=== PATIENT | female | born 1935 | race Caucasian/White ===

== ENCOUNTER 2017-11-16 20:26 | Observation (INO) | payer MEDICARE, OTHER, SELFPAY ==
[~2017-11-16] VITALS: Ht 157.5 cm; Wt 58.1 kg
[~2017-11-16 20:26] MED LIST: ALBU90OI6 INH; ALEN70 PO; ASPI325 PO; ATOR80 PO; Acidophilus La100 GM PO; BIOTIN1 MG PO; BUDE6HFA INH; CARV3.125 PO; CELE100 PO; CLOP75 PO; CYAN100 PO; DICL75ER PO; DOCU100 PO; DONE5 PO; DULO30 PO; ERGO400 PO; FISH1000 PO; HYDCHL25 PO; HYDR1TAB94 PO; LEVO750 PO; LISI20 PO; LISI5 PO; NAPR500 PO; NITR100CA PO; OMEP20ER PO; OMEP40CA12 PO; OMEPRAZOLE MAGN20 MG PO; OSEL75CA PO; ROSU10TA PO; SPIR25 PO; TORSE20 PO; TRAM50 PO; ZESTORETIC 20-121 EA PO; Zithromax500 MG PO
[2017-11-16 20:48] LABS: BASOPHILS ABSOLUTE AUTO 0.03 K/mm3 (0.00-0.23); BASOPHILS PERCENT AUTO 1 % (0-2); EOSINOPHILS ABSOLUTE AUTO 0.21 K/mm3 (0.00-0.68); EOSINOPHILS PERCENT AUTO 5 % (0-6); Hematocrit 34.1 % (33.0-51.0); Hemoglobin 11.2 g/dL (11.5-16.0); IMMATURE GRAN ABSOLUTE AUTO 0.01 K/mm3 (0.00-0.10); IMMATURE GRAN PERCENT AUTO 0 % (0-1); LYMPHOCYTES ABSOLUTE AUTO 1.46 K/mm3 (0.84-5.20); LYMPHOCYTES PERCENT AUTO 31 % (21-46); MONOCYTES ABSOLUTE AUTO 0.46 K/mm3 (0.16-1.47); MONOCYTES PERCENT AUTO 10 % (4-13); Mean Corpuscular HGB 30.2 pg (26.0-34.0); Mean Corpuscular HGB Conc 32.8 g/dL (31.5-36.5); Mean Corpuscular Volume 92 fL (80-100); NEUTROPHILS ABSOLUTE AUTO 2.53 K/mm3 (1.96-9.15); NEUTROPHILS PERCENT AUTO 54 % (41-73); Platelet Count 207 K/mm3 (150-400); RDW Standard Deviation 40.5 fL (35.1-46.3); Red Blood Cell Count 3.71 M/mm3 (3.80-5.20)
[2017-11-16 21:09] LABS: Albumin, Blood 3.1 g/dL (3.4-5.0); Albumin/Globulin Ratio 0.8 (0.8-1.8); Bilirubin, Total 0.4 mg/dL (0.1-1.0); Bun/Creatinine Ratio 36.3 (12.0-20.0); Calcium, Blood 9.6 mg/dL (8.5-10.1); Creatinine, Blood 1.13 mg/dL (0.40-1.00); Globulin, Blood 3.9 g/dL (2.2-4.0); Potassium, Blood 3.4 mmol/L (3.5-5.5)
[2017-11-18 05:09] LABS: BASOPHILS ABSOLUTE AUTO 0.04 K/mm3 (0.00-0.23); BASOPHILS PERCENT AUTO 1 % (0-2); EOSINOPHILS ABSOLUTE AUTO 0.13 K/mm3 (0.00-0.68); EOSINOPHILS PERCENT AUTO 3 % (0-6); Hematocrit 32.3 % (33.0-51.0); Hemoglobin 10.5 g/dL (11.5-16.0); IMMATURE GRAN ABSOLUTE AUTO 0.01 K/mm3 (0.00-0.10); IMMATURE GRAN PERCENT AUTO 0 % (0-1); LYMPHOCYTES ABSOLUTE AUTO 1.37 K/mm3 (0.84-5.20); LYMPHOCYTES PERCENT AUTO 27 % (21-46); MONOCYTES ABSOLUTE AUTO 0.43 K/mm3 (0.16-1.47); MONOCYTES PERCENT AUTO 9 % (4-13); Mean Corpuscular HGB 30.1 pg (26.0-34.0); Mean Corpuscular HGB Conc 32.5 g/dL (31.5-36.5); Mean Corpuscular Volume 93 fL (80-100); Mean Platelet Volume 9.6 fL (9.1-12.4); NEUTROPHILS ABSOLUTE AUTO 3.08 K/mm3 (1.96-9.15); NEUTROPHILS PERCENT AUTO 61 % (41-73); Platelet Count 190 K/mm3 (150-400); RDW Standard Deviation 40.3 fL (35.1-46.3); Red Blood Cell Count 3.49 M/mm3 (3.80-5.20); White Blood Cell Count 5.06 K/mm3 (4.00-11.30)
[2017-11-18 06:08] LABS: Bun/Creatinine Ratio 27.2 (12.0-20.0); Creatinine, Blood 0.96 mg/dL (0.40-1.00); Potassium, Blood 3.7 mmol/L (3.5-5.5)
[2017-11-18 16:28] LABS: Source, Urine Clean Catch
[2017-11-18 16:39] LABS: Appearance, Urine Clear (Clear); Bilirubin, Urine Neg (Neg); Blood, Urine Neg (Neg); Color, Urine Yellow (P-Yellow); Glucose Qualitative, Urine Neg (Neg); Ketones, Urine 2+ (Neg); Leukocyte Esterase, Urine Neg (Neg); Nitrite, Urine Neg (Neg); Protein, Urine Neg (Neg); Urobilinogen, Urine 1+ (Normal)
== END 2017-11-25 16:20 | disposition home or self-care (01) ==
LOC: ER 20:26 → MEDS 20:27 → ENPENDDIS 11-24 10:31 → EDPENDDIS 11-24 10:31 → MEDS 11-25 16:20
PROVIDERS: Internal Medicine; Physician Assistant
DX: S02.2XXA Fracture of nasal bones, initial encounter for closed fracture (principal); S05.11XA Contusion of eyeball and orbital tissues, right eye, initial encounter; I13.0 Hypertensive heart and chronic kidney disease with heart failure and stage 1 through stage 4 chronic kidney disease, or unspecified chronic kidney disease; E11.22 Type 2 diabetes mellitus with diabetic chronic kidney disease; N18.3 Chronic kidney disease, stage 3 (moderate); E87.6 Hypokalemia; I50.22 Chronic systolic (congestive) heart failure; J44.9 Chronic obstructive pulmonary disease, unspecified; I25.10 Atherosclerotic heart disease of native coronary artery without angina pectoris; F03.90 Unspecified dementia, unspecified severity, without behavioral disturbance, psychotic disturbance, mood disturbance, and anxiety; Z85.3 Personal history of malignant neoplasm of breast; Z95.5 Presence of coronary angioplasty implant and graft; Z88.5 Allergy status to narcotic agent; Z88.0 Allergy status to penicillin; Z88.8 Allergy status to other drugs, medicaments and biological substances; Z79.82 Long term (current) use of aspirin; Z79.899 Other long term (current) drug therapy; Z90.12 Acquired absence of left breast and nipple; Z96.641 Presence of right artificial hip joint; Z98.890 Other specified postprocedural states; Z87.891 Personal history of nicotine dependence; W01.190A Fall on same level from slipping, tripping and stumbling with subsequent striking against furniture, initial encounter
CPT/HCPCS: 36415; 70450; 72125; 73502; 80048; 80053; 81003; 82947; 83735; 85025; 87493; 93005; 93010; 96361; 96365; 96366; 97110; 97116; 97161; 97166; 97530; 99285; G0378; G8978; G8979; G8987; G8988; G8989; J7040; J7120

== ENCOUNTER 2017-12-12 08:54 | Emergency (ER) | payer MEDICARE, OTHER, SELFPAY ==
[~2017-12-12] VITALS: Ht 165.1 cm; Wt 52.2 kg
[2017-12-12 09:28] LABS: BASOPHILS ABSOLUTE AUTO 0.03 K/mm3 (0.00-0.23); BASOPHILS PERCENT AUTO 0 % (0-2); EOSINOPHILS ABSOLUTE AUTO 0.05 K/mm3 (0.00-0.68); EOSINOPHILS PERCENT AUTO 1 % (0-6); Hematocrit 37.5 % (33.0-51.0); IMMATURE GRAN ABSOLUTE AUTO 0.02 K/mm3 (0.00-0.10); IMMATURE GRAN PERCENT AUTO 0 % (0-1); LYMPHOCYTES ABSOLUTE AUTO 1.27 K/mm3 (0.84-5.20); LYMPHOCYTES PERCENT AUTO 16 % (21-46); MONOCYTES ABSOLUTE AUTO 0.37 K/mm3 (0.16-1.47); MONOCYTES PERCENT AUTO 5 % (4-13); Mean Corpuscular HGB 29.5 pg (26.0-34.0); Mean Corpuscular Volume 92 fL (80-100); Mean Platelet Volume 8.8 fL (9.1-12.4); NEUTROPHILS ABSOLUTE AUTO 6.46 K/mm3 (1.96-9.15); NEUTROPHILS PERCENT AUTO 79 % (41-73); Platelet Count 252 K/mm3 (150-400); RDW Coefficient Variation 12.6 % (11.7-14.2); RDW Standard Deviation 42.5 fL (35.1-46.3); Red Blood Cell Count 4.07 M/mm3 (3.80-5.20)
[2017-12-12 09:41] LABS: Alanine Aminotransfer (ALT/SGP 19 U/L (12-78); Albumin, Blood 3.7 g/dL (3.4-5.0); Albumin/Globulin Ratio 0.9 (0.8-1.8); Alk Phos 120 U/L (50-136); Anion Gap 7 mmol/L (6-16); Aspartate Aminotrans (AST/SGOT 24 U/L (12-37); Bilirubin, Total 0.6 mg/dL (0.1-1.0); Blood Urea Nitrogen 20 mg/dL (8-24); Bun/Creatinine Ratio 23.2 (12.0-20.0); CO2, Blood 33 mmol/L (21-32); Calcium, Blood 9.2 mg/dL (8.5-10.1); Chloride, Blood 97 mmol/L (98-108); Creatinine, Blood 0.86 mg/dL (0.40-1.00); Globulin, Blood 3.9 g/dL (2.2-4.0); Glomerular Filtration Rate >60 (60-); Glucose, Blood 148 mg/dL (70-99); Sodium, Blood 137 mmol/L (136-145); Total Protein, Blood 7.6 g/dL (6.4-8.2); Troponin I <0.015 ng/mL (0.000-0.040)
[2017-12-12] MEDS ORDERED: ACET325 PO (09:49)
[2017-12-12] MEDS ORDERED: Milk Of Ma400 MG/5 M PO (09:50)
[2017-12-12] MEDS ORDERED: LOPE2C PO (09:50)
[2017-12-12] MEDS ORDERED: BISA10S PR (09:50)
[2017-12-12] MEDS ORDERED: ALUM320SU PO (09:50)
[2017-12-12] MEDS ORDERED: Hair, Skin & N1 EACH PO (09:51)
== END 2017-12-12 13:44 | disposition home or self-care (01) ==
LOC: ER 08:54
PROVIDERS: Emergency Medicine
DX: R07.9 Chest pain, unspecified (principal); K44.9 Diaphragmatic hernia without obstruction or gangrene; I10 Essential (primary) hypertension; E11.9 Type 2 diabetes mellitus without complications; Z88.0 Allergy status to penicillin; Z88.5 Allergy status to narcotic agent; Z88.8 Allergy status to other drugs, medicaments and biological substances; Z79.899 Other long term (current) drug therapy; Z79.82 Long term (current) use of aspirin; Z85.3 Personal history of malignant neoplasm of breast; Z90.12 Acquired absence of left breast and nipple; Z87.891 Personal history of nicotine dependence
CPT/HCPCS: 36415; 71046; 80053; 83880; 84484; 85025; 93005; 93010; 99283

== ENCOUNTER → 2018-04-18 | Outpatient (CLI) | payer MEDICARE, OTHER ==
[~2018-04-18] MED LIST changes: +ACET325 PO; +ALUM320SU PO; +BISA10S PR; +Hair, Skin & N1 EACH PO; +LOPE2C PO; +Milk Of Ma400 MG/5 M PO
[2018-04-18 16:25] LABS: Source, Urine Clean Catch
[2018-04-18 16:28] LABS: Bilirubin, Urine Neg (Neg); Blood, Urine Neg (Neg); Glucose Qualitative, Urine Neg (Neg); Ketones, Urine Neg (Neg); Leukocyte Esterase, Urine 1+ (Neg); Nitrite, Urine Neg (Neg); Protein, Urine Neg (Neg); Urobilinogen, Urine NORM (Normal)
[2018-04-18 16:33] LABS: Appearance, Urine Clear (Clear); Color, Urine Yellow (P-Yellow)
[2018-04-18 16:34] LABS: Bacteria Few /hpf; Red Blood Cells, Urine 0-2 /hpf (0-2); Squamous Epithelial Cells Rare /hpf (Few); White Blood Cells, Urine 0-2 /hpf (0-5)
== END | disposition home or self-care (01) ==
LOC: LAB 16:21 → LAB SHORT 16:21
PROVIDERS: Family Medicine
DX: N39.0 Urinary tract infection, site not specified (principal)
CPT/HCPCS: 81001; 87086

== ENCOUNTER → 2018-05-18 | Outpatient (CLI) | payer MEDICARE, OTHER ==
[2018-05-19 08:21] LABS: Source, Urine Clean Catch
[2018-05-19 08:33] LABS: Bilirubin, Urine Neg (Neg); Blood, Urine 2+ (Neg); Glucose Qualitative, Urine Neg (Neg); Ketones, Urine Neg (Neg); Leukocyte Esterase, Urine 1+ (Neg); Nitrite, Urine Neg (Neg); Protein, Urine Neg (Neg); Specific Gravity, Urine 1.015 (1.003-1.022); Urobilinogen, Urine NORM (Normal)
[2018-05-19 09:13] LABS: Appearance, Urine Cloudy (Clear); Color, Urine Yellow (P-Yellow)
[2018-05-19 09:14] LABS: Amorphous Light (0-Heavy); Bacteria Few /hpf; Red Blood Cells, Urine 0-2 /hpf (0-2); Squamous Epithelial Cells Few /hpf (Few)
== END | disposition home or self-care (01) ==
LOC: LAB SHORT 08:19 → LAB 08:19
PROVIDERS: Family Medicine
DX: N39.0 Urinary tract infection, site not specified (principal)
CPT/HCPCS: 81001; 87086

== ENCOUNTER 2018-08-24 07:56 | Inpatient (IN) | payer MEDICARE, OTHER ==
[~2018-08-24] VITALS: Ht 172.7 cm; Wt 61.9 kg
[2018-08-24 08:28] LABS: BASOPHILS ABSOLUTE AUTO 0.05 K/mm3 (0.00-0.23); BASOPHILS PERCENT AUTO 1 % (0-2); EOSINOPHILS ABSOLUTE AUTO 0.12 K/mm3 (0.00-0.68); EOSINOPHILS PERCENT AUTO 2 % (0-6); Hemoglobin 12.6 g/dL (11.5-16.0); IMMATURE GRAN ABSOLUTE AUTO 0.11 K/mm3 (0.00-0.10); IMMATURE GRAN PERCENT AUTO 2 % (0-1); LYMPHOCYTES ABSOLUTE AUTO 1.24 K/mm3 (0.84-5.20); LYMPHOCYTES PERCENT AUTO 21 % (21-46); MONOCYTES ABSOLUTE AUTO 0.43 K/mm3 (0.16-1.47); MONOCYTES PERCENT AUTO 7 % (4-13); Mean Corpuscular HGB 28.6 pg (26.0-34.0); Mean Corpuscular HGB Conc 32.3 g/dL (31.5-36.5); Mean Corpuscular Volume 89 fL (80-100); Mean Platelet Volume 8.6 fL (9.1-12.4); NEUTROPHILS ABSOLUTE AUTO 3.95 K/mm3 (1.96-9.15); NEUTROPHILS PERCENT AUTO 67 % (41-73); Platelet Count 206 K/mm3 (150-400); RDW Standard Deviation 42.2 fL (35.1-46.3)
[2018-08-24 08:43] LABS: International Normalized Ratio 1.01; Prothrombin Time Results 10.4 Sec (9.7-11.5)
[2018-08-24 08:50] LABS: Alanine Aminotransfer (ALT/SGP 20 U/L (12-78); Albumin, Blood 3.1 g/dL (3.4-5.0); Albumin/Globulin Ratio 0.8 (0.8-1.8); Alk Phos 111 U/L (50-136); Anion Gap 7 mmol/L (6-16); Aspartate Aminotrans (AST/SGOT 19 U/L (12-37); Bilirubin, Total 0.8 mg/dL (0.1-1.0); Blood Urea Nitrogen 21 mg/dL (8-24); Bun/Creatinine Ratio 25.5 (12.0-20.0); CO2, Blood 30 mmol/L (21-32); Calcium, Blood 8.9 mg/dL (8.5-10.1); Chloride, Blood 107 mmol/L (98-108); Creatinine, Blood 0.82 mg/dL (0.40-1.00); Globulin, Blood 3.7 g/dL (2.2-4.0); Glomerular Filtration Rate >60 (60-); Glucose, Blood 117 mg/dL (70-99); Potassium, Blood 3.7 mmol/L (3.5-5.5); Sodium, Blood 144 mmol/L (136-145); Total Protein, Blood 6.8 g/dL (6.4-8.2)
[2018-08-24 09:26] LABS: Source, Urine Catheter
[2018-08-24 09:28] LABS: Bilirubin, Urine Neg (Neg); Blood, Urine Neg (Neg); Glucose Qualitative, Urine Neg (Neg); Ketones, Urine Neg (Neg); Leukocyte Esterase, Urine Neg (Neg); Nitrite, Urine Neg (Neg); Protein, Urine 1+ (Neg); Specific Gravity, Urine 1.015 (1.003-1.022); Urobilinogen, Urine NORM (Normal)
[2018-08-24 09:39] LABS: Appearance, Urine Clear (Clear); Color, Urine Yellow (P-Yellow)
[2018-08-24] MEDS ORDERED: ASPI81CH PO (13:14)
[2018-08-24] MEDS ORDERED: VITAMIN D-32000 UNIT PO (13:26)
[2018-08-24 17:17] LABS: Hematocrit 37.4 % (33.0-51.0); Hemoglobin 11.9 g/dL (11.5-16.0)
[2018-08-24 18:02] LABS: CPK Creatine Kinase 86 U/L (26-193); Troponin I <0.015 ng/mL (0.000-0.040)
[2018-08-24 19:54] LABS: Hematocrit 33.2 % (33.0-51.0); Hemoglobin 10.6 g/dL (11.5-16.0)
[2018-08-25 06:04] LABS: BASOPHILS ABSOLUTE AUTO 0.02 K/mm3 (0.00-0.23); BASOPHILS PERCENT AUTO 0 % (0-2); EOSINOPHILS PERCENT AUTO 0 % (0-6); Hematocrit 33.9 % (33.0-51.0); Hemoglobin 10.5 g/dL (11.5-16.0); IMMATURE GRAN PERCENT AUTO 1 % (0-1); LYMPHOCYTES ABSOLUTE AUTO 0.93 K/mm3 (0.84-5.20); LYMPHOCYTES PERCENT AUTO 5 % (21-46); MONOCYTES ABSOLUTE AUTO 1.24 K/mm3 (0.16-1.47); MONOCYTES PERCENT AUTO 6 % (4-13); Mean Corpuscular HGB 28.8 pg (26.0-34.0); Mean Platelet Volume 8.9 fL (9.1-12.4); NEUTROPHILS ABSOLUTE AUTO 17.15 K/mm3 (1.96-9.15); NEUTROPHILS PERCENT AUTO 88 % (41-73); Platelet Count 202 K/mm3 (150-400); RDW Coefficient Variation 13.2 % (11.7-14.2); RDW Standard Deviation 44.8 fL (35.1-46.3); Red Blood Cell Count 3.65 M/mm3 (3.80-5.20); White Blood Cell Count 19.44 K/mm3 (4.00-11.30)
[2018-08-25 06:05] LABS: Mean Corpuscular Volume 93 fL (80-100)
[2018-08-25 14:39] LABS: Hematocrit 28.2 % (33.0-51.0); Hemoglobin 8.8 g/dL (11.5-16.0)
[2018-08-25 15:38] LABS: Albumin, Blood 2.9 g/dL (3.4-5.0); Albumin/Globulin Ratio 0.8 (0.8-1.8); Bilirubin, Direct 0.2 mg/dL (0.0-0.3); Bilirubin, Indirect 0.4 mg/dL (0.1-0.7); Bilirubin, Total 0.6 mg/dL (0.1-1.0); Globulin, Blood 3.5 g/dL (2.2-4.0); Total Protein, Blood 6.4 g/dL (6.4-8.2); Troponin I 0.024 ng/mL (0.000-0.040)
[2018-08-25 18:19] LABS: Hematocrit 25.9 % (33.0-51.0); Hemoglobin 8.1 g/dL (11.5-16.0)
[2018-08-25 21:17] LABS: Source, Urine Clean Catch
[2018-08-25 21:21] LABS: Blood, Urine 4+ (Neg); Glucose Qualitative, Urine Neg (Neg); Ketones, Urine 1+ (Neg); Leukocyte Esterase, Urine 3+ (Neg); Nitrite, Urine Neg (Neg); Protein, Urine 3+ (Neg); Specific Gravity, Urine 1.025 (1.003-1.022); Urobilinogen, Urine 1+ (Normal)
[2018-08-25 21:26] LABS: Appearance, Urine Cloudy (Clear); Bilirubin, Urine 1+ (Neg); Color, Urine Yellow (P-Yellow)
[2018-08-25 21:27] LABS: Amorphous Light ([, 0-Heavy]); Bacteria Few /hpf; Mucus Light ([, 0-Heavy]); Red Blood Cells, Urine 0-2 /hpf (0-2); Squamous Epithelial Cells Rare /hpf (Few); White Blood Cells, Urine TNTC /hpf (0-5)
[2018-08-26 04:38] LABS: BASOPHILS ABSOLUTE AUTO 0.02 K/mm3 (0.00-0.23); BASOPHILS PERCENT AUTO 0 % (0-2); EOSINOPHILS PERCENT AUTO 0 % (0-6); Hematocrit 35.6 % (33.0-51.0); IMMATURE GRAN ABSOLUTE AUTO 0.06 K/mm3 (0.00-0.10); IMMATURE GRAN PERCENT AUTO 0 % (0-1); LYMPHOCYTES PERCENT AUTO 3 % (21-46); MONOCYTES ABSOLUTE AUTO 1.23 K/mm3 (0.16-1.47); MONOCYTES PERCENT AUTO 7 % (4-13); Mean Corpuscular HGB 29.3 pg (26.0-34.0); Mean Corpuscular HGB Conc 33.7 g/dL (31.5-36.5); Mean Platelet Volume 9.3 fL (9.1-12.4); NEUTROPHILS ABSOLUTE AUTO 15.54 K/mm3 (1.96-9.15); NEUTROPHILS PERCENT AUTO 89 % (41-73); Platelet Count 173 K/mm3 (150-400); RDW Coefficient Variation 13.5 % (11.7-14.2); RDW Standard Deviation 42.2 fL (35.1-46.3); Red Blood Cell Count 4.09 M/mm3 (3.80-5.20); White Blood Cell Count 17.45 K/mm3 (4.00-11.30)
[2018-08-26 04:41] LABS: Mean Corpuscular Volume 87 fL (80-100)
[2018-08-26 04:56] LABS: Bun/Creatinine Ratio 30.4 (12.0-20.0); Calcium, Blood 7.7 mg/dL (8.5-10.1); Creatinine, Blood 2.3 mg/dL (0.40-1.00); Potassium, Blood 4.5 mmol/L (3.5-5.5)
[2018-08-27 06:44] LABS: Hematocrit 27.2 % (33.0-51.0); Hemoglobin 8.7 g/dL (11.5-16.0); Mean Corpuscular HGB 29.6 pg (26.0-34.0); Mean Corpuscular Volume 93 fL (80-100); Mean Platelet Volume 9.4 fL (9.1-12.4); NRBC ABSOLUTE 0.02 K/mm3 (0.00-0.02); NRBC Auto 0.2 /100 WBC (0.0-0.2); Platelet Count 121 K/mm3 (150-400); RDW Coefficient Variation 14.5 % (11.7-14.2); RDW Standard Deviation 48.6 fL (35.1-46.3); Red Blood Cell Count 2.94 M/mm3 (3.80-5.20); White Blood Cell Count 10.53 K/mm3 (4.00-11.30)
[2018-08-27 06:57] LABS: Vancomycin, Trough 12.1 ug/mL (5.0-10.0)
[2018-08-27 07:03] LABS: Bun/Creatinine Ratio 42.5 (12.0-20.0); Calcium, Blood 7.4 mg/dL (8.5-10.1); Creatinine, Blood 1.2 mg/dL (0.40-1.00); Magnesium, Blood 2.5 mg/dL (1.6-2.4); Phosphorus, Blood 2.7 mg/dL (2.5-4.9); Potassium, Blood 3.9 mmol/L (3.5-5.5)
[2018-08-27 07:07] LABS: BAND PERCENT MAN 26 % (0-8); BASOPHILS PERCENT MAN 0 % (0-2); EOSINOPHILS PERCENT MAN 0 % (0-6); LYMPHOCYTES ABSOLUTE MAN 0.73 K/mm3 (0.84-5.20); LYMPHOCYTES PERCENT MAN 7 % (21-46); MONOCYTES ABSOLUTE MAN 0.63 K/mm3 (0.16-1.47); MONOCYTES PERCENT MAN 6 % (4-13); NEUTROPHILS ABSOLUTE MAN 9.16 K/mm3 (1.96-9.15); SEG NEUTROPHILS PERCENT MAN 61 % (41-73); TOTAL CELLS COUNTED 100
[2018-08-28] MEDS ORDERED: HYDR1TAB94 PO (12:04)
[2018-08-28] MEDS ORDERED: LACTOBACILLUS1 EACH PO (12:08)
[2018-08-28] MEDS ORDERED: Bactrim Ds Tab1 EACH PO (12:10)
== END 2018-08-28 15:06 | disposition home or self-care (01) | DRG 480 ==
LOC: ER 07:56 → SURS 09:18 → ICUE 09:18 → SURS 10:36 → ICUE 10:40 → SURS 08-26 18:45
PROVIDERS: Internal Medicine; Internal Medicine Critical Care Medicine; Orthopaedic Surgery; Pharmacist; Physician Assistant
PROC: 30233N1 Transfusion of Nonautologous Red Blood Cells into Peripheral Vein, Percutaneous Approach (ICD-10-PCS; 2018-08-26)
PROC: 02HV33Z Insertion of Infusion Device into Superior Vena Cava, Percutaneous Approach (ICD-10-PCS; 2018-08-26)
PROC: 0QS736Z Reposition Left Upper Femur with Intramedullary Internal Fixation Device, Percutaneous Approach (ICD-10-PCS; principal; 2018-08-26 15:45)
DX: S72.142A Displaced intertrochanteric fracture of left femur, initial encounter for closed fracture (principal); N17.0 Acute kidney failure with tubular necrosis; R57.0 Cardiogenic shock; D62 Acute posthemorrhagic anemia; N39.0 Urinary tract infection, site not specified; G93.40 Encephalopathy, unspecified; Z51.5 Encounter for palliative care; I25.10 Atherosclerotic heart disease of native coronary artery without angina pectoris; I10 Essential (primary) hypertension; W06.XXXA Fall from bed, initial encounter; F03.90 Unspecified dementia, unspecified severity, without behavioral disturbance, psychotic disturbance, mood disturbance, and anxiety; E11.9 Type 2 diabetes mellitus without complications; J44.9 Chronic obstructive pulmonary disease, unspecified; Z85.3 Personal history of malignant neoplasm of breast; Z86.73 Personal history of transient ischemic attack (TIA), and cerebral infarction without residual deficits; Z96.641 Presence of right artificial hip joint; Z87.891 Personal history of nicotine dependence; Z95.5 Presence of coronary angioplasty implant and graft
CPT/HCPCS: 36415; 36430; 36569; 51702; 51703; 71045; 72192; 73502; 76770; 76882; 80048; 80053; 80076; 80202; 81001; 82150; 82550; 82947; 83690; 83735; 84100; 84145; 84484; 85014; 85018; 85025; 85610; 85651; 86140; 86850; 86900; 86901; 86923; 87040; 87077; 87086; 87186; 93005; 93010; 93308; 93321; 94762; 96374; 96375; 97110; 97163; 97166; 97530; 97535; 99285-25; C1713; C1751; C1769; G8978; G8979; G8987; G8988; J0360; J0744; J1170; J2405; J2550; J2765; J3010; J3370; J7030; J7040; J7120; P9016

== ENCOUNTER → 2020-05-02 | Outpatient (CLI) | payer MEDICARE, OTHER ==
[~2020-05-02] MED LIST changes: +ASPI81CH PO; +Bactrim Ds Tab1 EACH PO; +LACTOBACILLUS1 EACH PO; +VITAMIN D-32000 UNIT PO
[2020-05-02 12:00] LABS: Bilirubin, Urine Neg (Neg); Blood, Urine 2+ (Neg); Glucose Qualitative, Urine Neg (Neg); Ketones, Urine Neg (Neg); Leukocyte Esterase, Urine Neg (Neg); Nitrite, Urine Neg (Neg); Protein, Urine Neg (Neg); Urobilinogen, Urine NORM (Normal)
[2020-05-02 12:38] LABS: Appearance, Urine Hazy (Clear); Bacteria Not Seen /hpf; Color, Urine Yellow (P-Yellow); Squamous Epithelial Cells Few /hpf (Few); White Blood Cells, Urine Not Seen /hpf (0-5)
== END ==
LOC: LAB SHORT 10:44 → LAB 10:44
DX: N39.0 Urinary tract infection, site not specified (principal)
CPT/HCPCS: 81001

== ENCOUNTER 2020-07-21 20:14 | Emergency (ER) | payer MEDICARE, OTHER ==
[~2020-07-21] VITALS: Ht 165.1 cm; Wt 74.8 kg
[2020-07-21] MEDS ORDERED: FLUT1DIS5 INH (20:29)
[2020-07-21] MEDS ORDERED: CALCIUM CIT 311 EACH PO (20:30)
[2020-07-21] MEDS ORDERED: Voltaren100 GM TOP (20:31)
[2020-07-21] MEDS ORDERED: FAMO20 PO (20:32)
[2020-07-21] MEDS ORDERED: GABA300 PO (20:33)
[2020-07-21] MEDS ORDERED: VITAMIN D310 MC4 PO (20:35)
== END 2020-07-21 22:53 | disposition home or self-care (01) ==
LOC: ER 20:14
DX: R04.0 Epistaxis (principal); I25.10 Atherosclerotic heart disease of native coronary artery without angina pectoris; I10 Essential (primary) hypertension; J44.9 Chronic obstructive pulmonary disease, unspecified; Z88.0 Allergy status to penicillin; Z88.5 Allergy status to narcotic agent; Z88.4 Allergy status to anesthetic agent; Z88.8 Allergy status to other drugs, medicaments and biological substances; Z79.899 Other long term (current) drug therapy; Z79.02 Long term (current) use of antithrombotics/antiplatelets; Z79.82 Long term (current) use of aspirin; Z87.891 Personal history of nicotine dependence
CPT/HCPCS: 99283

== ENCOUNTER 2021-01-06 09:24 | Inpatient (IN) | payer MEDICARE, OTHER ==
[~2021-01-06] VITALS: Ht 165.1 cm; Wt 75.1 kg
[~2021-01-06 09:24] MED LIST changes: -ACET325 PO; -ASPI81CH PO; -ATOR80 PO; -BISA10S PR; -CARV3.125 PO; -CLOP75 PO; -DULO30 PO; -LACTOBACILLUS1 EACH PO; -LOPE2C PO; -Milk Of Ma400 MG/5 M PO; -SPIR25 PO; -TORSE20 PO; -VITAMIN D-32000 UNIT PO
[2021-01-06 10:19] LABS: BASOPHILS ABSOLUTE AUTO 0.06 K/mm3 (0.00-0.23); BASOPHILS PERCENT AUTO 0 % (0-2); EOSINOPHILS PERCENT AUTO 0 % (0-6); Hematocrit 42.2 % (33.0-51.0); Hemoglobin 14.3 g/dL (11.5-16.0); IMMATURE GRAN ABSOLUTE AUTO 0.25 K/mm3 (0.00-0.10); IMMATURE GRAN PERCENT AUTO 1 % (0-1); LYMPHOCYTES ABSOLUTE AUTO 1.02 K/mm3 (0.84-5.20); LYMPHOCYTES PERCENT AUTO 4 % (21-46); MONOCYTES ABSOLUTE AUTO 1.32 K/mm3 (0.16-1.47); MONOCYTES PERCENT AUTO 6 % (4-13); Mean Corpuscular HGB Conc 33.9 g/dL (31.5-36.5); Mean Corpuscular Volume 89 fL (80-100); Mean Platelet Volume 9.3 fL (9.1-12.4); NEUTROPHILS ABSOLUTE AUTO 21.21 K/mm3 (1.96-9.15); NEUTROPHILS PERCENT AUTO 89 % (41-73); Platelet Count 192 K/mm3 (150-400); RDW Standard Deviation 45.2 fL (35.1-46.3); Red Blood Cell Count 4.76 M/mm3 (3.80-5.20); White Blood Cell Count 23.86 K/mm3 (4.00-11.30)
[2021-01-06 10:32] LABS: Source, Urine Catheter
[2021-01-06 10:35] LABS: Appearance, Urine Hazy (Clear); Bilirubin, Urine Neg (Neg); Blood, Urine 5+ (Neg); Color, Urine Yellow (P-Yellow); Glucose Qualitative, Urine Neg (Neg); Ketones, Urine 1+ (Neg); Leukocyte Esterase, Urine Neg (Neg); Nitrite, Urine Neg (Neg); Protein, Urine 3+ (Neg); Specific Gravity, Urine 1.025 (1.003-1.022); Urobilinogen, Urine NORM (Normal)
[2021-01-06 10:39] LABS: Albumin, Blood 3.3 g/dL (3.4-5.0); Albumin/Globulin Ratio 0.8 (0.8-1.8); Bilirubin, Total 0.8 mg/dL (0.1-1.0); Bun/Creatinine Ratio 23.5 (12.0-20.0); Calcium, Blood 9.8 mg/dL (8.5-10.1); Creatinine, Blood 1.15 mg/dL (0.40-1.00); Globulin, Blood 4.3 g/dL (2.2-4.0); Potassium, Blood 3.9 mmol/L (3.5-5.5); Total Protein, Blood 7.6 g/dL (6.4-8.2)
[2021-01-06 10:49] LABS: Bacteria Not Seen /hpf; Squamous Epithelial Cells Rare /hpf (Few); White Blood Cells, Urine Not Seen /hpf (0-5)
[2021-01-06 10:50] LABS: Amorphous Light (0-Heavy)
[2021-01-06] MEDS ORDERED: ATOR80 PO (12:45)
[2021-01-06] MEDS ORDERED: ASPI81CH PO (12:45)
[2021-01-06] MEDS ORDERED: CARV3.125 PO (12:45)
[2021-01-06] MEDS ORDERED: ACIDOPHILUS PR1 EAC2 PO ×2 (12:46→19:39)
[2021-01-06] MEDS ORDERED: FLUT1DIS5 INH ×3 (12:46→20:39)
[2021-01-06] MEDS ORDERED: CALCITRATE200 M1 PO (12:47)
[2021-01-06] MEDS ORDERED: CLOP75 PO (12:48)
[2021-01-06] MEDS ORDERED: DULO60 PO (12:48)
[2021-01-06] MEDS ORDERED: FAMO20 PO (12:49)
[2021-01-06] MEDS ORDERED: DONEPEZIL HCL10 MG PO (12:49)
[2021-01-06] MEDS ORDERED: DICLOFENAC SOD100 G1 TOP (12:49)
[2021-01-06] MEDS ORDERED: TORSE20 PO (12:50)
[2021-01-06] MEDS ORDERED: DOCU100 PO (12:50)
[2021-01-06] MEDS ORDERED: SPIR25 PO (12:51)
[2021-01-06] MEDS ORDERED: GABA300 PO (12:51)
[2021-01-06] MEDS ORDERED: SENN187 PO (12:52)
[2021-01-06] MEDS ORDERED: MULVITA PO (12:52)
[2021-01-06] MEDS ORDERED: Seroquel Xr50 MG PO (12:52)
[2021-01-06] MEDS ORDERED: Vitamin D2000 UNIT PO (12:53)
[2021-01-06] MEDS ORDERED: NYSTOP15 GM TOP (12:54)
[2021-01-06] MEDS ORDERED: BISA10S PR (12:55)
[2021-01-06] MEDS ORDERED: ACET325 PO (12:55)
[2021-01-06] MEDS ORDERED: [UNRECOGNIZED DRUG - CODE] PO (12:57)
[2021-01-06] MEDS ORDERED: ALUM-MAG HYDROX30 ML PO (12:58)
[2021-01-06] MEDS ORDERED: LOPE2C PO (12:59)
[2021-01-06] MEDS ORDERED: Haloperidol1 MG PO (12:59)
[2021-01-06] MEDS ORDERED: Milk Of Ma400 MG/5 M PO (13:00)
[2021-01-06] MEDS ORDERED: [UNRECOGNIZED DRUG - OTHER] TOP (13:01)
[2021-01-06 17:01] LABS: PCO2 Arterial 40.2 mmHg (35-45); PO2 Arterial 115 mmHg (80-100); pH Blood Arterial 7.37 (7.35-7.45)
--- NOTE | 2021-01-06 18:48 | NUR ---
ADMIT TO PCU: ADMIT TO PCU FROM ER AT 1810 VIA CLINTRMITCHEL. TRANSFERRED WITH SLIDE SHEET. PT NOT RESPONDING VERBALLY. WHEN SPEAKING TO PATIENT SHE OPENS EYES AND LOOKS AT ME. MOANS A LITTLE WHEN TURNING. NO SIGNS OF PAIN AT THIS TIME. TELE SHOWING SINUS RHYTHM WITH HR IN THE 80'S. ON 11 L HIGH FLOW O2 SATING AT 96%. PT SLEEPING IN BED. LUNGS SOUND CLEAR. WILL CONTINUE TO MONITOR.
[2021-01-06 18:57] LABS: International Normalized Ratio 1.15; Prothrombin Time Results 12.2 Sec (9.7-11.5)
--- NOTE | 2021-01-06 19:14 | NUR ---
SHIFT SUMMARY: REFER TO ADMIT NOTE FOR INITIAL INFO. REPORTED OF TO [facility] [place]. PT STILL NOT RESPONDING VERBALLY. ABLE TO OPEN EYES AND LOOK AT US WHILE TALKING. UNABLE TO FOLLOW SIMPLE COMMANDS SUCH SQUEEZING HANDS. TITRATED O2 DOWN FROM 15L FROM ER TO 11L O2 HIGH FLOW, SATING AT 95-96%. VITAL SIGNS STABLE. NO ACUTE CHANGES. ORIENTED TO CALL LIGHT AND SAFETY. BED ALARM ON.
--- NOTE | 2021-01-06 19:31 | NUR ---
THIS RN SPOKE WITH LORA, STAFF AT [facility], WHERE PT IS A RESIDENT. LORA WAS ABLE TO PROVIDE MORE MEDICAL HISTORY AND INFORMATION ABOUT THE PT'S BASELINE STATUS. SHE REPORTS THE PT HAS COPD, GERD, AND NEUROPATHIC PAIN IN ADDITION TO THE HISTORY DOCUMENTED IN HER MEDICAL RECORDS HERE. SHE REPORTS THAT THE PT IS ABLE TO AMBULATE WITH A WALKER AT BASELINE, IS NORMALLY VERY TALKATIVE, MOSTLY HAS MILD CONFUSION WITH REPITITION, AND SOMETIMES CAN BE RESISTIVE TO CARE. LORA STATES THAT THE PT'S SON, DESIREE, HAS BEEN NOTIFIED BY STAFF THERE OF HIS MOTHER'S HOSPITALIZATION. LORA STATES SHE WILL FAX PT'S MOST RECENT MAR TO PCU FOR MEDICATION RECONCILLIATION.
--- NOTE | 2021-01-06 20:45 | NUR ---
LARISSA FROM [facility] RECONCILLED WITH PT'S MEDICATION LIST BY THIS RN.
--- NOTE | 2021-01-07 00:13 | NUR ---
MENTAL STATUS/HOTN 1930 UPON TAKING CARE OF PT AT SHIFT CHANGE PT NOTED TO BE NONRESPONSIVE AND HOTN. PT NOT RESPONDING TO STERNAL RUB AT ALL. PUPILS FIXED FORWARD, 1-2MM DIAMETER. BP HOTN WITH SBP 80'S. RETAKEN AND RANGING FROM 80'S - 90'S SBP. NO FLUIDS INFUSING AT THAT TIME BUT HEPARIN GTT HAD BEEN STARTED PER EMAR. DUE TO COMPLEXITY OF CASE, ELECTED TO CALL ADMITTING EFM DR SCHILLING. DIDN'T ANSWER INITIALLY AND CALLED DR PIERRE. IGNACIO REVIEWED CHART, UPDATED ON PT CONDITION/FINDINGS. ORDERS RECEIVED FOR 1L NS BOLUS [id number] DR SCHILLING RETURNED CALL. UPDATED ON PT'S CONDITION. DISCUSSED HOTN, 1L NS BOLUS, AND PT'S NONRESPONSIVENESS. GIVES ORDERS FOR PRN 500ML BLUS X1 AFTER 1L BOLUS COMPLETED FOR SBP <90 (THIS WAS IMMEDIATELY GIVEN POST 1L BOLUS DUE TO SBP). ALSO GAVE ORDERS FOR 150 MAINTENANCE NS FLUIDS. THREE WAY CALL HELD OVER PHONE WITH PT'S SON, TONIE, AND THIS RN. AT THIS TIME, PT'S CONDITION APPEARED TO BE DETERIORATING. VIA DISCUSSION WITH CHOPPER FEEDER AND NURSE SHEET METAL WORKER SUPERVISOR, SON ALLOWED TO COME IN. 2222 DESPITE FLUID BOLUSES, BP'S CONTINUE TO RANGE FROM 80-90SBP AND ONE INSTANCE OF 66/49. AT THIS TIME, HOWEVER, PT OPENED EYES AND SAID HELLO. SON AT BEDSIDE. PT MUTTERING A FEW WORDS AND STATED BEING UNCOMFORTABLE. PT REPOSITIONED, MOANING, BUT THEN STATES COMFORT. 2333 BP RISEN TO >100 SBP CURRENTLY. NS INFUSING AT 150ML/HR. PT HAS BEEN OFF AND ON AGAIN LETHARGIC/NONRESPONSIVE TO MOANING/WORDS. SON HAS DECIDED TO HEAD HOME NOW. EDUCATION PROVIDED REGARDING PT'S CONDITION, PROGNOSIS, ETC. PT REMAINS DNR/DNI BUT INTERVENTIONS TO STILL BE COMPLETED AT THIS TIME.
--- NOTE | 2021-01-07 04:08 | NUR ---
MENTAL STATUS / HR 0320 PT'S HR CLIMBED INTO 130'S TO 150'S SUSTAINING. PT AGITATED. C/O OF PAIN TO BACK. TRYING TO GET OOB. BP 140/98 MANUAL. LABETOLOL 10MG GIVEN. HR TRENDED BACK DOWN TO 90'S. MORPHINE GIVEN FOR PAIN/AGITATION. PT TOLERATED WELL AND SEEMS TO HAVE CALMED DOWN SOME. 0417 - PT FEBRILE/DIAPHORETIC 101.4. TYLENOL SUPPOSITORY ORDERED. BP STILL STABLE.
--- NOTE | 2021-01-07 06:25 | NUR ---
3535 PT INCREASINGLY IMPULSIVE, TRYING TO GET OUT OF BED. MORPHINE HELPFUL FOR CONTROLLING PAIN BUT PT STILL SOMEWHT AGITAED. DECISION MADE TO PLACE PT IN VEST AND 4 SIDERAILS. PT TOLERATING THIS WELL AND HAS SINCE CALMED DOWN.
--- NOTE | 2021-01-07 06:26 | NUR ---
SHIFT SUMMARY SEE NOTES PRECEDING THIS SUMMARY. PT HAS FLUCTUATED BETWEEN NONRESPONSIVE TO AGITATED. STARTED SHIFT AT 11L HIFLO, TITRATED DOWN TO 1L AND NOW AT 4L NC. HEPARIN GTT INFUSING, CRITICALLY HIGH WITH AM LABS, BEING HELD RIGHT NOW. HOTN FOR MOST OF SHIFT UNTIL MULTIPLE BOLUSES COMPLETED, NOW STABILIZING CURRENTLY. PT PLACED IN MARISELA VEST, TOLERATING WELL. PT'S SON IN ROOM AND UP TO DATE ON PT CONDITION. LEFT AROUND 0000. [facility] UPDATED WELL, PT RESIDES THERE. BED ALARM IN PLACE. WILL CONTINUE TO MONITOR UNTIL SHIFT CHANGE.
--- NOTE | 2021-01-07 09:19 | NUR ---
UPDATE: PT LETHERGIC AND CONFUSED THIS AM. ABLE TO STATE HER NAME AND HER SON'S NAME. VITAL SIGNS STABLE WITH BP 111/63. NORMAL SALINE INFUSING AT 150 ML/HR. PUPILS REACTING TO LIGHT, AND PT ABLE TO FOLLOW ME WITH HER EYES I TALK TO HER. MARISELA VEST IN PLACE AND BED ALARM ON. REPEATING PHRASES SUCH "MY FATHER'S SON, MY MOTHER HE IS". WHEN ASKED WHAT HER BIRTHDAY IS PT STATED "7". WILL CONTINUE TO MONITOR.
[2021-01-07 11:21] LABS: Albumin, Blood 2.5 g/dL (3.4-5.0); Albumin/Globulin Ratio 0.7 (0.8-1.8); Bilirubin, Total 0.4 mg/dL (0.1-1.0); Bun/Creatinine Ratio 28.5 (12.0-20.0); Calcium, Blood 8.3 mg/dL (8.5-10.1); Creatinine, Blood 0.95 mg/dL (0.40-1.00); Globulin, Blood 3.8 g/dL (2.2-4.0); Hematocrit 37.8 % (33.0-51.0); Mean Corpuscular HGB 29.6 pg (26.0-34.0); Mean Corpuscular HGB Conc 31.7 g/dL (31.5-36.5); Mean Corpuscular Volume 93 fL (80-100); Platelet Count 132 K/mm3 (150-400); Potassium, Blood 3.8 mmol/L (3.5-5.5); RDW Coefficient Variation 14.4 % (11.7-14.2); RDW Standard Deviation 49.5 fL (35.1-46.3); Red Blood Cell Count 4.05 M/mm3 (3.80-5.20); Total Protein, Blood 6.3 g/dL (6.4-8.2); White Blood Cell Count 15.34 K/mm3 (4.00-11.30)
[2021-01-07 12:06] LABS: BAND PERCENT MAN 7 % (0-8); BASOPHILS PERCENT MAN 0 % (0-2); EOSINOPHILS PERCENT MAN 0 % (0-6); LYMPHOCYTES ABSOLUTE MAN 1.07 K/mm3 (0.84-5.20); LYMPHOCYTES PERCENT MAN 7 % (21-46); MONOCYTES ABSOLUTE MAN 0.92 K/mm3 (0.16-1.47); MONOCYTES PERCENT MAN 6 % (4-13); NEUTROPHILS ABSOLUTE MAN 13.34 K/mm3 (1.96-9.15); SEG NEUTROPHILS PERCENT MAN 80 % (41-73); TOTAL CELLS COUNTED 100
--- NOTE | 2021-01-07 13:26 | NUR ---
UPDATE: ECHO DONE, PT AGITATED AND CONFUSED. WANTING TO GET OUT OF BED. DR SCHILLING IN TO SEE PT. FLUIDS STOPPED AND ONE TIME DOSE OF ATIVAN ORDERED. PT DIAPHERETIC AND CLAMMY. VITALS SIGNS STABLE. TELE SHOWING SINUS TACH WITH HR 103-112. MARISELA VEST IN PLACE AND BED ALARM ON FOR SAFETY. WILL CONTINUE TO MONITOR STATUS.
--- NOTE | 2021-01-07 15:20 | NUR ---
UPDATE: PT SON IN TO VISIT. PT DECREASED AGITATION. MARISELA VEST STILL IN PLACE. Q2 TURNING AND FLUIDS PROVIDED. NEW ORDERS FOR IV FLUIDS INFUSING. VITAL SIGNS STABLE. PT TALKING SOME. DISCUSSING THE "LIPSTICK AND EYEBROW PENCIL" SHE WEARS. VITAL SIGNS STABLE. FOREHEAD PULSE OX ON AND READING WELL. WILL CONTINUE TO MONITOR.
--- NOTE | 2021-01-07 19:25 | NUR ---
SHIFT SUMMARY: PT ALERT TO SELF AND SON WHEN VISITING. ON 1-2 L O2 RESTING AND 3-4 L O2 WHEN AGITATED AND MOVING IN BED. PT PULLING AT OXYGEN AT TIMES. REPEATING PHRASES AND HARD TO REDIRECT. ABLE TO CALM DOWN WITH REASSURANCE. VITAL SIGNS STABLE. SEE PREVIOUS NOTES FOR UPDATES. MARISELA IN PLACE. Q2 TURNING. FLUIDS INFUSING. ABLE TO TAKE PILLS WITH WATER AND COOPERATIVE WITH MEDS. NOT USING CALL LIGHT. BED REMAINED IN LOW LOCKED POSITION. REPORTED OFF TO CHANNELING MACHINE OPERATOR NURSE.
--- NOTE | 2021-01-07 20:09 | NUR ---
LABOR CONTRACTOR CALLED RN TO NOTIFY OF HR IN 140'S, BP WAS ALSO ELEVATED DURING BEGINNING OF SHIFT VITALS. BP 170'S/100'S. PRN LABETALOL GIVEN - LABOR CONTRACTOR NOTIFIED. WILL CONTINUE TO MONITOR BP AND HR ON TELE MONITOR.
--- NOTE | 2021-01-08 06:04 | NUR ---
SHIFT SUMMARY PT RESTED WELL THROUGH NIGHT. ALERT AND ORIENTED X1. SATS >90% ON ROOM AIR - 2LNC. TELE NSR-SINUS TACH. COIN MACHINE SERVICER REPAIRER NOTIFIED RN OF HR IN 140'S, AND PT BP AT THAT TIME WAS ELEVATE 170'S/100'S, LABETALOL GIVEN X1. FEW HOURS LATER, BP WAS HYPOTENSIVE AND 80'S/50'S. ORDER TO BOLUS X1 LITER. BP RECOVERED AND IS NORMOTENSIVE NOW. PT PRETTY LETHARGIC THROUGH NIGHT, ASSESSED NEED FOR MARISELA VEST, AND DECIDED TO DISCONTINUE PT DOES NOT APPEAR TO BE INTERFERING WITH PLAN OF CARE, NOR APPEAR TO BE HARM TO SELF. BED ALARM ON IN CASE PT TRIES TO GET OUT OF BED, AND DOOR LEFT OPEN. INCONTINENT CHANGES X3 - 2 SMALL BOWEL SMEARS IN ATTENDS. Q2 TURNS FOR PRESSURE INJURY PREVENTION. CALL LIGHT WTIHN REACH, BED IN LOWEST POSITION. BED ALARM ON. WILL CONTINUE TO MONITOR.
[2021-01-08 06:14] LABS: BASOPHILS ABSOLUTE AUTO 0.04 K/mm3 (0.00-0.23); BASOPHILS PERCENT AUTO 0 % (0-2); EOSINOPHILS ABSOLUTE AUTO 0.01 K/mm3 (0.00-0.68); EOSINOPHILS PERCENT AUTO 0 % (0-6); Hematocrit 36.7 % (33.0-51.0); Hemoglobin 11.7 g/dL (11.5-16.0); IMMATURE GRAN ABSOLUTE AUTO 0.14 K/mm3 (0.00-0.10); IMMATURE GRAN PERCENT AUTO 1 % (0-1); LYMPHOCYTES ABSOLUTE AUTO 0.96 K/mm3 (0.84-5.20); LYMPHOCYTES PERCENT AUTO 8 % (21-46); MONOCYTES ABSOLUTE AUTO 0.92 K/mm3 (0.16-1.47); MONOCYTES PERCENT AUTO 7 % (4-13); Mean Corpuscular HGB 29.7 pg (26.0-34.0); Mean Corpuscular HGB Conc 31.9 g/dL (31.5-36.5); Mean Corpuscular Volume 93 fL (80-100); NEUTROPHILS ABSOLUTE AUTO 10.35 K/mm3 (1.96-9.15); NEUTROPHILS PERCENT AUTO 83 % (41-73); RDW Coefficient Variation 14.3 % (11.7-14.2); RDW Standard Deviation 48.8 fL (35.1-46.3); Red Blood Cell Count 3.94 M/mm3 (3.80-5.20); White Blood Cell Count 12.42 K/mm3 (4.00-11.30)
[2021-01-08 06:58] LABS: Mean Platelet Volume 10.4 fL (9.1-12.4); Platelet Count 100 K/mm3 (150-400)
--- NOTE | 2021-01-08 12:20 | NUR ---
MID-SHIFT UPDATE PT HAS BEEN ALSEEP FOR THE MAJORITY OF THE SHIFT, WHEN SHE WAS AWAKE THIS MORNING SHE WAS VERY CONFUSED, ANXIOUS AND FEARFUL. RN KMO WAS ABLE TO SPEND SOME TIME WITH THE PATIENT AND TALK TO HER AND ASSURE HER SHE IS SAFE. PT WAS GIVEN A SMALL GENTLE LEG RUB WHICH WAS CALMING AND SHE WAS ABLE TO REST AGAIN
--- NOTE | 2021-01-08 15:44 | NUR ---
Spiritual care visit conducted. Patient minimally responsive and patient's son, Skyler, is bedside. Skyler tells me about patient's life, her spiritual journey and the family dynamics. He tells me about patient's dementia and the challenges that go with that. He tells me that, in his opinion, he is getting conflicting messages in terms of how long patient has to live. Skyler tells me that he is quite stressed about his mother's health. I normalize patient's experience, reinforce helpful attitudes and provide pastoral phone counselor and prayer. Skyler responds well and shows signs of reduced stress. I will continue to remain available to patient and family
--- NOTE | 2021-01-08 17:21 | NUR ---
ADMIT: 01/06/21 DISCHARGE: DX:Altered mental status CC:kwilcox JOSE CALL: [address] RESIDENCE: [address] CAREGIVER: Son/caregiver, Skyler Whitaker DX:COPD, chest wall pain, Vertebra fracture, GERD, see list DME: bedpans, disposable brief, disposible gloves CCM: Referral 07/31/2020 HOME HEALTH: none SUMMARY: Admit: 01/06/21 01/08/21- per chart review, pt was brought in by care facility for altered mental status. [facility] has been seeing pt and talking with family about treatment plan. Pt is found to have sepsis, altered mental status and confusion that appears to be clearing up. Pt has had temperature and is COVID (-). Son shared with nurse that he may want to pursue pallative/comfort care but would like to discuss this with her PCP. Cardiology spoke with son in detail about intervention treatment and that they would like to wait until pt is able to give consent. Son states that if it could be accomplished, he would like her to be back to her active state prior to being hospitalized. Per pallative care note, son is confused about his mother's health and differing opinions on how long she may have. -madhav
--- NOTE | 2021-01-08 17:28 | NUR ---
SHIFT SUMMARY PT HAS BEEN VERY LETHARGIC ALL DAY, WHEN SHE DOES WAKE SHE IS CONFUSED AND ONLY ORIENTED TO HERSELF. PT WAS NOT ABLE TO TAKE ALL MORNING MEDICATIONS, SHE TOOK MOST OF THEM THEN BEGAN REFUSING. PT HAS SOME REDNESS/IRRITATION TO THE RIGHT EYE AND HAS BEEN GIVEN EYE DROPS TO HELP ALLEVIATE THE IRRITATION. PT'S SON VISITED HER TODAY AND SPENT TIME WITH THE PT AND SPEAKING WITH YOSELIN FROM [employer]. VS HAVE BEEN STABLE, PT HAS NEEDED 1-2L O2 SHE TENDS TO DESATURATE WHEN AWAKE AND ANXIOUS. PT IS RESTING AT THIS TIME.
[2021-01-09 04:45] LABS: BASOPHILS ABSOLUTE AUTO 0.03 K/mm3 (0.00-0.23); BASOPHILS PERCENT AUTO 0 % (0-2); EOSINOPHILS ABSOLUTE AUTO 0.02 K/mm3 (0.00-0.68); EOSINOPHILS PERCENT AUTO 0 % (0-6); Hematocrit 33.6 % (33.0-51.0); Hemoglobin 10.9 g/dL (11.5-16.0); IMMATURE GRAN ABSOLUTE AUTO 0.05 K/mm3 (0.00-0.10); IMMATURE GRAN PERCENT AUTO 0 % (0-1); LYMPHOCYTES ABSOLUTE AUTO 0.59 K/mm3 (0.84-5.20); LYMPHOCYTES PERCENT AUTO 5 % (21-46); MONOCYTES ABSOLUTE AUTO 0.81 K/mm3 (0.16-1.47); MONOCYTES PERCENT AUTO 7 % (4-13); Mean Corpuscular HGB 29.9 pg (26.0-34.0); Mean Corpuscular HGB Conc 32.4 g/dL (31.5-36.5); Mean Corpuscular Volume 92 fL (80-100); Mean Platelet Volume 9.7 fL (9.1-12.4); NEUTROPHILS ABSOLUTE AUTO 9.88 K/mm3 (1.96-9.15); NEUTROPHILS PERCENT AUTO 87 % (41-73); Platelet Count 141 K/mm3 (150-400); RDW Coefficient Variation 14.2 % (11.7-14.2); Red Blood Cell Count 3.65 M/mm3 (3.80-5.20); White Blood Cell Count 11.38 K/mm3 (4.00-11.30)
[2021-01-09 05:04] LABS: Anion Gap 11 mmol/L (6-16); Blood Urea Nitrogen 23 mg/dL (8-24); Bun/Creatinine Ratio 26.4 (12.0-20.0); CO2, Blood 22 mmol/L (21-32); Calcium, Blood 8.4 mg/dL (8.5-10.1); Chloride, Blood 113 mmol/L (98-108); Creatinine, Blood 0.87 mg/dL (0.40-1.00); Glomerular Filtration Rate >60 (60-); Glucose, Blood 104 mg/dL (70-99); Potassium, Blood 2.9 mmol/L (3.5-5.5); Sodium, Blood 146 mmol/L (136-145); Troponin I 0.155 ng/mL (0.000-0.040)
--- NOTE | 2021-01-09 05:15 | NUR ---
SHIFT SUMMARY PT RESTED WELL THROUGH THE NIGHT. NOT ALERT AND ORIENTED. DEMENTED, AND SLIGHTLY AGITATED - SEROQUEL GIVEN. SATS >90% ON 2LNC, FROM TIME TO TIME, PT DESATS TO 70'S WHEN WORKED UP AND PULLING AT OXYGEN. RECOVERS QUICKLY. TELE - NSR/SINUS TACH. INCONTINENT VOIDS - ATTENDS CHANGED NEEDED. VSS. CALL LIGHT WITHIN REACH, BED IN LOWEST POSITION, BED ALARM ON. WILL CONTINUE TO MONITOR.
--- NOTE | 2021-01-09 09:48 | NUR ---
ASSUMED CARE, MORNING UPDATE PT CONTINUES TO BE LETHARGIC AND CONFUSED WHEN AROUSED. PT WILL AWAKE TO VERBAL STIMULI. PT WAS ABLE TO TAKE MOST OF HER MORNING MEDICATIONS, SOME OF WHICH SHE REFUSED TO CONTINUE EATING HER PUDDING WITH THE MEDS MIXED IN, SOME OF WHICH SHE BEGAN TO SPIT OUT. PT IS RESTING AT THIS TIME. PT CONTINUES TO BE ON BEDREST TODAY SHE IS VERY WEAK, SHE WAS NOT ABLE TO HELP ROLL IN THE BED FOR HER BRIEF CHANGE AND REPOSITION THIS MORNING. POTASSIUM LEVELS WERE LOW, REPLACEMENT PER EMAR.
--- NOTE | 2021-01-09 15:48 | NUR ---
Spiritual care visit conducted. Patient's son, Skyler is on the phone outside patient's rm. He looks at me and states, "It doesn't look good." We walk into patient's rm and Skyler tells me that he has been on a roller coaster ride with patient's health and now it is going down and she won't come up from this. He tells me many stories of the wild life that the patient lived and the strong, kind and passionate woman that she was. We discuss how Skyler is coping and what his plan is going forward. He states he will meet with Palliative Care then meet with patient's doctor tomorrow and with his sister arrives. I provide therapeutic listening and prayer. I will continue to remain available to patient and family.
--- NOTE | 2021-01-09 16:00 | NUR ---
INITIAL PAL CARE VISIT AND CASE CONFERENCE WITH RN, DENNIS BIANCHI DR. Pt's bedside RN contacted me to let me know pt's son was at bedside and welcoming of a visit. She and I had case conferenced re: planned visit, current status and concerns earlier. Lawyer visiting with son/pt when I arrived. I joined at bedside for prayer and then spent time with son, listening, as he told of events of past few days with his mom and decline in her health the past few months to years. Pt was sleeping t/o visit but towards the end, opened her eyes and greeted me like an old friend. She believes, as do I, that we have met here at the hospital during a previous visit. Pt then went back to sleep. Her hands are ice cold with some bruising and/or mottling noted. Her face is flushed/pink, skin cool and dry. She is sl dyspnic, even at rest with increased shallow resp rate of 24-28/min. She has a furrowed brow and grimaces occassionally and appears to be moderately unconfomfortable. She is not agitated and she does not look anxious at this time. Son relates that he did not think his mom would live through the weekend. He asked questions about hospice and comfort care and after explaining what that would look like here in the hospital he requested that we transition Marine to comfort care at this time. With perfect timing his sister was calling him for an update and after they spoke, I gave pt's meenakshi an update and reviewed comfort care, plan of care Skyler was requesting and pt's daughter in full agreement with that plan. She and her will be arriving from [place] tomorrow afternoon. Update provided to bedside RN and pt's Dr. AL obtained and entered for comfort care orders. Reviewed orders with pt's RN. Plan to reeval in am for s/s management needs and visit later in day also when family present for support and to answer any questions. They are aware that pt may be moved out of PCU.
--- NOTE | 2021-01-09 16:12 | NUR ---
01/09/21- per chart review, spiritual care met with son. Son states that he has a meeting planned with palliative care, pt's doctor and his sister when she comes into town tomorrow. Pt attempted to see pt but she was not very responsive. OT attempted to see pt but orders will be cancelled by the nurse.-madhav
--- NOTE | 2021-01-09 17:13 | NUR ---
COMFORT CARE PT CONTINUES TO BE LETHARGIC AND PT'S SON HAS COME TO VISIT AND HAS DECIDED TO PLACE THE PT ON CC. PT HAS RECEIVED HER FIRST DOSE OF MORPHINE. PT'S SON, DESIREE WHO IS POA WILL RETURN TOMORROW WITH HIS SISTER AND BROTHER IN LAW TO CONTINUE TO OFFER SUPPORT AND CARE.
--- NOTE | 2021-01-09 17:37 | NUR ---
SHIFT SUMMARY PT CONTINUES TO BE LETHARGIC AND CONFUSED TODAY. FAMILY WAS HERE THIS AFTERNOON AND WORKED WITH PALLIATIVE CARE AND THE DOCTOR AND DECIDED ON COMFORT CARE FOR THE PATIENT. PT WAS GIVEN MORPHINE TO MANAGE HER DISCOMFORT AND IS RESTING WELL AT THIS TIME. FAMILY WILL RETURN TOMORROW TO VISIT WITH THE PT. VS STABLE AT THIS TIME.
--- NOTE | 2021-01-09 17:40 | NUR ---
LINEN CHANGE PT HAD A COMPLETE BED CHANGE FOLLOWING AN INCONTINENCE INCIDENT. PT WAS REPOSITIONED AND CHANGED AND GIVEN A PARTIAL BED BATH BY TWO DRESSAGE JUDGE'S
[2021-01-09] MEDS ORDERED: CARVEDILOL 3.125 MG PO (18:04)
--- NOTE | 2021-01-09 19:10 | NUR ---
ASSUMED CARE RECEIVED BEDSIDE REPORT FROM [facility] [place]; PT CONFUSED, BUT RESTING QUIETLY IN BED; DENIES PAIN; NO DISTRESS NOTED; CALL LIGHT IN REACH; BED IN LOWEST POSITION.
--- NOTE | 2021-01-10 06:32 | NUR ---
SHIFT SUMMARY PT FORGETFUL BUT CALM; DENIES PAIN; NO TELE IN PLACE; Q2 TURNS PROVIDED; INCONTINENT W/ ATTENDS IN PLACE; SLEPT SEVERAL HOURS THIS SHIFT; NO DISTRESS NOTED; FLAGYL ADMINISTERED IV; CALL LIGHT IN REACH; BED IN LOWEST POSITION; WILL CONTINUE TO MONITOR CLOSELY UNTIL HAND OFF TO DAY SHIFT RN.
--- NOTE | 2021-01-10 09:48 | NUR ---
Pal Care comfort care visit made. Pt awake and making eye contact but not responding verbally. Opened shades for her. MCAT TUTOR and I repositioned her. She exhibited and expressed feeling anxious but I did not observe nonverbal indicators of pain. Pt's son arrived and we spoke about plan of care, repositioning, s/s mangement. Plan to return this afternoon to check in with pt's meenakshi when she arrives from [place].
--- NOTE | 2021-01-10 11:10 | NUR ---
PT RESTING IN BED, OPENING EYES TO VERBAL QUESTIONS AND REPEATING PHRASES. PLEASANTLY CONFUSED. REPOSITIONED IN BED. BREATHING EFFORT NORMAL AND SKIN WARM TO TOUCH. PT DENIES PAIN OR FEELING WARM. CALL LIGHT IN REACH. WILL CONTINUE TO MONITOR.
--- NOTE | 2021-01-10 11:12 | NUR ---
SON AT BEDSIDE VISITING. PT SITTING UP IN BED ALERT AND TALKING TO SON. PT DENIES PAIN AT THIS TIME. ANTIBIOTICS INFUSED. DR. FULLER IN TO SEE PATIENT. NEW ORDERS FOR VITAL SIGNS AND SPEECH ORDERED. WILL CONTINUE TO MONITOR.
--- NOTE | 2021-01-10 14:29 | NUR ---
TRANSFER TO MEDICAL PT ALERT TO SELF AND AT TIMES FAMILY MEMBERS. ABLE TO STATES NEEDS AND WANTS SUCH A DRINK OF WATER OR THAT HER BACK IS HURTING HER. MEDICATED ONCE PER EMAR FOR BACK PAIN. FAMILY IN ROOM TO SEE PATIENT TODAY. ATTENDS IN PLACE FOR INCONTINENCE. VITAL SIGNS STABLE WITH ELEVATED BP THIS AFTERNOON. VITALS Q8. SPEECH ORDERED. IV ANTIBIOTICS INFUSED. BED IN LOW LOCKED POSITION. Q2 TURNING AND NEEDED. PT DENIES PAIN AT THIS TIME. RESTING IN BED. WILL REPORT OFF AND TRANSFER.
--- NOTE | 2021-01-10 15:12 | NUR ---
Spiritual care visit conducted. Patient is lying in bed and alert. Patient repeats hello after I say it and then she keeps repeating for 30 seconds or so. I ask patient if Skyler has been in to see her and she repeats Skyler a few times but as a question (Skyler? Skyler?), I then tell her(based on what I was told by Skyler about her Taoism eileen) that Diego loves her. She smiles and repeats, "He loves me, he loves me." I tell that she is very clear and smart today and she says, "Yep, yep, yep...). This kind of communication goes on for awhile and patient seems to be enjoying it until she starts getting sleepy then I let her rest. I will continue to remain available to patient and family.
--- NOTE | 2021-01-10 16:21 | NUR ---
ARRIVES FROM U ABOUT 1530. SAYS "NO" TO ALL QUESTIONS. DENIES ANY PAIN. MUSIC ON. FAN ON LOW. APPEARS COMFORTABLE. CALL [facility] FOR NEXT ANTIBIOTIC. JENNIE
--- NOTE | 2021-01-10 18:50 | NUR ---
Spiritual care note: Mrs. Arce appeared a bit restless. She seemed able to respond with one word answers and most of thim this was "no." She was unable to engage in conversation. She did allow me to pray for her. Informed RN of pt's restlessness. [employer] Etcher services will remain available.
--- NOTE | 2021-01-11 02:13 | NUR ---
PT 85 DNR status on comfort measures with limited interventions such as antibiotics & Q 8 hr VS continues with some verbalizations. MedicaTED SEVERAL TIMES FOR CO PAIN WITH HELPFUL EFFECT. No oral intake.
[2021-01-11] MEDS ORDERED: FLUT1DIS5 INH (03:44)
--- NOTE | 2021-01-11 07:00 | NUR ---
ASSUMED CARE OF PATIENT. REPORT DONE AT BEDSIDE. PATIENT RESTING COMFORTABLY, NO S/S OF PAIN OR DISTRESS.
--- NOTE | 2021-01-11 08:58 | NUR ---
DR. FULLER AT BEDSIDE. PATIENT APPEARS COMFORTABLE. ATTEMPTS TO TALK, BUT SPEECH GARBLED AND DIFFICULT TO UNDERSTAND. NO S/S OF PAIN OR DISCOMFORT, WILL CONT TO ASSESS.
--- NOTE | 2021-01-11 09:56 | NUR ---
[facility] COMFORT CARE VISIT EARLY THIS AM. 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 She was moaning and furrowing brow/frowning at times. Her breathing is much less labored than yesterday and the day before, slowing with some gaps noted in resp rate. Pt is not awake enough to take in PO medications or food/fluids at this time. Case conferences with pt's bedside RN, son and Dr after my visit. Son given update and we discussed plan of care in regard to pt's progression in the process of dying, her rally day yesterday, safety with attempting PO meds/food and discontinuance of PO meds and IV medications that are not adding to her comfort. Son in agreement with comfort care plan of care and pt safety with meds. T/c to Dr with update and VO obtained to d/c PO meds and IV medications including IV antibiotics. Son and meenakshi will be in later this am. Encouraged them to cont talking amonst themselves in room and to Marine, even she is not able to engage or acknowledge their presence. Update on new orders given to RN. Will return to room if indicated or requested. Son invited to request another visit today if he felt it would be helpful to him or his sister.
--- NOTE | 2021-01-11 11:58 | NUR ---
Second Comfort care visit this am per son's request. Met son and meenakshi in pt's room at bedside. They are both very loving and attentive with pt. Son asked to speak outside of the room re: /cremation arrangements. He will confirm home of choice today. We discussed normal s/s of dying process that we are noting in [place]. Literature given on that also, booklet "The 11th hour". Time spent with family in the room at bedside. Listened as they did life review and reminisced about their family parents and Marine specifically. I encouraged time spent together, rest, fresh air and self care. Family expressed appreciation for the care Marine is receiving. Discussed visit with pt's RN. She may place sweet for comfort as pt painful with turning and attends changes.
--- NOTE | 2021-01-11 15:15 | NUR ---
PATIENT REPOSITIONED AND ORAL CARE COMPLETED. SON DESIREE AT BEDSIDE AND IS NOW LEAVING FOR THE EVENING. HE WOULD LIKE A CALL IF PATIENT IS IMMINENT, OTHERWISE PLANS TO BE BACK IN THE MORNING. PAIN WELL CONTROLLED WITH ROXINOL TODAY. SCOPALAMINE PATCH PLACED FOR SECRETIONS. SKIN INTACT, MEPILEX TO COCCYX DUE TO MILD REDENESS.
--- NOTE | 2021-01-11 16:51 | NUR ---
01/11/21- Per palliative care note, pt's health has declined after her "rally day" yesterday. Family has decided to d/c all medical care and medications. Pt is not waking to voices. Family visited pt 2 times today. Palliative care nurse educated family on the dying process. Per Dr. Marc, pt will stay here until she passes. Daughter has made it down to see pt. -madhav
--- NOTE | 2021-01-12 05:36 | NUR ---
SHIFT SUMMARY- PT. ON COMFORT CARE. MEDICATED FOR PAIN SEVERAL TIMES T/O THE NIGHT, APPEARED TO HAVE GOOD EFFECT. SON AT THE BEDSIDE MOST OF THE NIGHT. STATED CONCERN PT. APPEARED ANXIOUS WITH EXCESSIVE SECRETIONS. MEDICATED WITH ATROPINE GTTS PER EMAR WELL ATIVAN. ALSO SCOPALAMINE PATCH IN PLACE. NOTED MINIMAL EFFECT. PT. REPOSITIONED FOR COMFORT AND SUCTIONED PRN. PT. CONTS TO VOID, ATTENDS IN PLACE. WILL CONT TO MONITOR.
--- NOTE | 2021-01-12 09:45 | NUR ---
ATTENDS CHANGED AND PATIENT REPOSITIONED. FAMILY AT BEDSIDE. FAMILY DENIES ANY NEEDS AT THIS TIME.
--- NOTE | 2021-01-12 17:45 | NUR ---
Spent time with pt and her son who was at the bedside today. Pt is showing signs of imminent , as her pupils are fixed and dilated, and her hands and feet have begun to mottle. Her son is calm, states he feels at peace as he can see pt is comfortable. No emergent needs identified. Son v/u on how to reach Palliative Care if needed. Provided therapeutic listening.
--- NOTE | 2021-01-12 17:54 | NUR ---
PATIENT MEDICATED WITH ROXINOL. FAMILY AT BEDSIDE. ORAL CARE COMPLETED AND PATIENT REPOSITIONED.
--- NOTE | 2021-01-12 18:33 | NUR ---
PATIENT AT 1834, CONFIRMED WITH 2 RN'S. CHARGE NURSE NOTIFIED, WILL NOTIFY HOSPITALIST. LETICIA RAMÍREZ CALLED AND IS COMING IN.
--- NOTE | 2021-01-12 19:42 | NUR ---
MEET WITH SON, PALLATIVE CARE ALREADY INFORMED HOSTESS CASHIER OF HOME, CALL WAS MADE. SON LEFT ABOUT 193 TOOK HOME BELONGINGS.
--- NOTE | 2021-01-12 22:11 | NUR ---
RAÚL SQUIRES ARRIVED FROM [facility] AT 2116. GAVE HIM A BAG WITH THE DENTURES, HE WAS ABLE TO GET 1 RING OFF THE FINGER AND IT WAS PLACED IN THE CUP IN THE BAG. THE OTHER RING REMAINED IN HER FINGER. STATES HE WILL CONTACT THE FAMILY. HOSPITAL RECRUITER WAS NOTIFED.
== END 2021-01-12 18:35 | DRG 871 ==
LOC: ER 09:24 → PCU 12:22 → ERHOLD 12:22 → PCU 18:19 → MEDS 01-10 15:34
PROVIDERS: Emergency Medicine; Family Medicine; ADMIT Internal Medicine
DX: A41.9 Sepsis, unspecified organism (principal); G93.41 Metabolic encephalopathy; I21.A1 Myocardial infarction type 2; J18.9 Pneumonia, unspecified organism; J96.01 Acute respiratory failure with hypoxia; N17.9 Acute kidney failure, unspecified; F03.91 Unspecified dementia, unspecified severity, with behavioral disturbance; F05 Delirium due to known physiological condition; E87.0 Hyperosmolality and hypernatremia; I50.42 Chronic combined systolic (congestive) and diastolic (congestive) heart failure; Z51.5 Encounter for palliative care; R65.20 Severe sepsis without septic shock; Z90.12 Acquired absence of left breast and nipple; Z20.822 Contact with and (suspected) exposure to COVID-19; Z66 Do not resuscitate; Z96.641 Presence of right artificial hip joint; Z96.643 Presence of artificial hip joint, bilateral; Z87.891 Personal history of nicotine dependence; Z79.82 Long term (current) use of aspirin; I25.10 Atherosclerotic heart disease of native coronary artery without angina pectoris; Z79.01 Long term (current) use of anticoagulants; E78.5 Hyperlipidemia, unspecified; R73.03 Prediabetes; Z85.3 Personal history of malignant neoplasm of breast; E66.9 Obesity, unspecified; E87.8 Other disorders of electrolyte and fluid balance, not elsewhere classified; I11.0 Hypertensive heart disease with heart failure; Z98.61 Coronary angioplasty status; Z68.26 Body mass index [BMI] 26.0-26.9, adult; Z78.1 Physical restraint status
CPT/HCPCS: 36415; 36600; 51798; 71045; 80048; 80053; 81001; 82803; 82947; 83605; 84145; 84484; 85025; 85610; 85730; 87040; 92610; 93005; 93010; 93306; 94640; 94760; 94762; 96360-59; 96361-59; 97162; 97530; 99285-25; A9270; J0696; J1644; J1650; J2060; J2270; J3480; J7030; J7040; J7050; J7120; P9612